=== PATIENT | male | born 1995 | race Caucasian/White ===

== ENCOUNTER 2022-08-27 22:15 | Emergency (ER) | payer MEDICAID ==
[~2022-08-27] VITALS: Ht 172.7 cm; Wt 91.0 kg
[2022-08-27 22:17] VITALS: O2SAT 100
[2022-08-27] MEDS ORDERED: MAGNESIUM/ALUMINUM HYDROXIDE/SIMETHICONE 30ML UDC PO STA (22:38)
[2022-08-27] MEDS ORDERED: ONDANSETRON 4MG ODT PO STA (22:38)
[2022-08-27 23:04] LABS: BASOPHILS % 0.2 % (0.0-2.0); EOSINOPHILS % 0.7 % (0.0-5.0); HEMATOCRIT. 44.6 % (42.0-52.0); HEMOGLOBIN. 15.4 g/dL (14.0-18.0); LYMPHOCYTES % 13.9 % (20.0-50.0); MEAN CORPUSCULAR HEMOGLOBIN 30.6 pg (28.0-32.0); MEAN CORPUSCULAR VOLUME 88.6 fL (80.0-94.0); MEAN PLATELET VOLUME 9.1 fl (7.4-10.4); NEUTROPHILS % 79.2 % (40.0-76.0); PLATELET 237 x1000/uL (130-400); RED BLOOD CELL COUNT 5.03 mill/uL (4.7-6.1); RED CELL DISTRIBUTION WIDTH 13.7 % (11.6-14.6)
[2022-08-27 23:13] LABS: CHLORIDE 112 mEq/L (98-107)
[2022-08-28] MEDS ORDERED: KETOROLAC 60MG/2ML VIAL IM NR (00:06)
[2022-08-28] MEDS ORDERED: PROT20 MT (03:46)
[2022-08-28] MEDS ORDERED: ONDA4TAB50 MT (03:46)
[2022-08-28 04:15] VITALS: BP 115/72; PULSE 76; RESP 16; TEMP 97.8
== END 2022-08-28 04:18 | disposition home or self-care (01) ==
LOC: ER 22:15
DX: R10.11 Right upper quadrant pain (principal)
CPT/HCPCS: 80053; 83690; 85025; 36415; 99285; 76705; 96372; Q0162; Z7610 ×4; J1885